=== PATIENT | female | born 1960 | race Two or more races ===

== ENCOUNTER 2021-05-21 09:45 | Outpatient (CLI) | payer BC | END 2021-05-21 23:59 | disposition home or self-care (01) | LOC: US 09:45 | PROVIDERS: ATTEND Family Medicine | DX: N89.8 Other specified noninflammatory disorders of vagina (principal); Z90.710 Acquired absence of both cervix and uterus | CPT/HCPCS: 76856-TC ==

== ENCOUNTER 2022-10-08 11:21 | Outpatient (CLI) | payer BC | END 2022-10-08 23:59 | disposition home or self-care (01) | LOC: MRI 11:21 | PROVIDERS: ATTEND Family Medicine | DX: M17.11 Unilateral primary osteoarthritis, right knee (principal); M25.461 Effusion, right knee; M25.561 Pain in right knee | CPT/HCPCS: 73721-TC ==

== ENCOUNTER 2025-02-14 10:30 | Outpatient (CLI) | payer BC | END 2025-02-14 23:59 | disposition home or self-care (01) | LOC: CT 10:30 | PROVIDERS: ATTEND Family Medicine | DX: R51.9 Headache, unspecified (principal) | CPT/HCPCS: 70450-TC ==